=== PATIENT | female | born 1990 ===

== ENCOUNTER 2017-03-19 10:20 | Outpatient (CLI) | payer OTHER ==
--- NOTE | 2017-03-19 12:29 | DIAGNOSTIC IMAGING REPORT ---
PROCEDURE: US OB DETAILED ANATOMIC INDICATION: LATE TO CARE TECHNIQUE: Patterson scale, color, and spectral Doppler images of the second trimester gravid uterus were obtained. COMPARISON: None. FINDINGS: A single living intrauterine is in vertex presentation. There is regular cardiac activity at a rate of 141 beats per minute. The placenta is anterior and away from the internal cervical os. The cervix is closed measuring approximately 5.3 cm in length. The amniotic fluid volume is subjectively normal. Biparietal diameter 4.3 cm of 19 weeks and 0 days Head circumference 16.2 cm of 19 weeks and 0 days Abdominal circumference 13.5 cm of 19 weeks and 0-day Femur length 29.3 cm of 19 weeks and 0 days Head to abdominal circumference ratio and femur length to abdominal circumference ratios are normal. Estimated weight 267 g Composite gestational age 19 weeks and 0 days, TAYLER 08/13/2017 There was visualization of a number of normal structures including the intracranial contents, facial features, nuchal region, spine, four-chamber heart , diaphragm, fluid-filled stomach, kidneys, abdomen, urinary bladder, upper and lower extremities, and genitals. A three-vessel umbilical cord, normal and placental cord insertion sites were seen. IMPRESSION: 1. Single living intrauterine with a composite gestational age of 19 weeks and 0 days, TAYLER 08/13/2017 2. Outflow tracts not well seen secondary to position and gestational age. Recommend repeat scan in the 2 weeks.
== END 2017-03-19 23:00 ==
LOC: US SRH 10:20
DX: Z34.92 Encounter for supervision of normal pregnancy, unspecified, second trimester (principal); Z3A.19 19 weeks gestation of pregnancy